=== PATIENT | female | born 1950 | race Asian ===

== ENCOUNTER 2017-07-04 19:30 | Inpatient (IN) | payer OTHER ==
[~2017-07-04] VITALS: Ht 160 cm; Wt 99.8 kg
--- NOTE | ~2017-07-04 | EKG ---
[address] [address] ELECTROCARDIOGRAM REPORT Name: LACIE ROBLES Room #: 411-P ADM IN M.R.#: [id number] Admission: 07/04/17 Attend Phys: Aniceto Hurtado MD Discharge: Date of : 52 Report #: [id number] THIS REPORT FOR: //name// [facility] ED Test Date: 2017-07-04 Test Time: 20:09:18 Pat Name: LAICE ROBLES Department: Room: 411 Gender: F [employer] Marker: [place] : 1950 Requested By: Colton Marina Order Number: [id number] MD: Arron Escoto Measurements Intervals [place] Rate: 85 P: 42 VA: 157 QRS: -2 QRSD: 93 T: 68 QT: 367 QTc: 437 Interpretive Statements Sinus rhythm Nonspecific ST segment abnormality No previous ECG available for comparison Electronically Signed On 07-05-2017 8:57:32 [employer] by Arron Escoto [email or web address] <ELECTRONICALLY SIGNED> By: Arron Escoto MD, [facility] 07/05/17 0857 08 08 Arron Escoto MD, FACC /EPI
[2017-07-04 20:35] LABS: ABSOLUTE NEUTROPHILS 7.1 thou/uL (1.4-8.2); BASOPHILS 0.4 % (0.0-2.0); EOSINOPHILS 1.9 % (0.0-3.0); HEMATOCRIT 35.4 % (37.0-47.0); HEMOGLOBIN 11.2 gm/dL (12.0-15.0); LYMPHOCYTES 17.8 % (24.0-44.0); MCH 29.8 pg (26.0-34.0); MCHC 31.7 g/dL (28.0-37.0); MCV 94.1 fL (80.0-100.0); MONOCYTES 3.5 % (1.0-8.0); PLATELET COUNT 228 thou/uL (150-400); POLYS 76.4 % (36.0-66.0); RBC 3.76 mil/uL (4.20-5.00); RDW 15.3 % (10.5-14.5); WBC 10.3 thou/uL (4.0-11.0)
[2017-07-04 20:42] LABS: ANION GAP 11 mmol/L (7-16); BUN 24 mg/dL (7-18); CALCIUM 9.6 mg/dL (8.5-10.1); CHLORIDE 103 mmol/L (98-107); CO2 19 mmol/L (21-32); CREATININE 1.6 mg/dL (0.6-1.0); GLUCOSE 191 mg/dL (74-106); POTASSIUM 4.9 mmol/L (3.5-5.1); SODIUM 133 mmol/L (136-145)
[2017-07-04 20:52] LABS: ALBUMIN 3.1 g/dL (3.4-5.0); SGOT 23 U/L (15-37); SGPT 16 U/L (30-65); TOTAL BILIRUBIN 0.5 mg/dL (<0.1-1.0); TOTAL PROTEIN 7.5 g/dL (6.4-8.2); TROPONIN-I < 0.04 ng/mL (<0.06)
[2017-07-04 21:51] LABS: URINE BILIRUBIN NEGATIVE (Negative); URINE BLOOD NEGATIVE (Negative); URINE CLARITY CLEAR; URINE COLOR YELLOW; URINE GLUCOSE-RANDOM* TRACE (Negative); URINE KETONES NEGATIVE (Negative); URINE NITRITE-REFLEX NEGATIVE (Negative); URINE PROTEIN (DIPSTICK) NEGATIVE (Negative); URINE UROBILINOGEN 0.2 E.U./dl (0.2-1.0)
[2017-07-04 21:52] LABS: URINE LEUKOCYTES-REFLEX 1+ (Negative)
[2017-07-04 22:01] LABS: BACTERIA-REFLEX 1-9 Few /HPF (None Seen); CASTS None Seen /LPF (None Seen); CRYSTALS None Seen /LPF (None Seen); SQUAMOUS 0-3 Few /LPF (0-3); URINE RBC None Seen /HPF (0-2); URINE WBC-REFLEX 6-15 Few /HPF (0-5)
[2017-07-04] MEDS ORDERED: IMURAN 50MG TAB50 M1 PO (22:36)
[2017-07-04] MEDS ORDERED: LOPRESSOR50 PO (22:37)
[2017-07-04] MEDS ORDERED: ACTOS 30 MG TAB30 M2 PO (22:38)
[2017-07-04] MEDS ORDERED: NEXIUM40 MG PO (22:39)
[2017-07-04] MEDS ORDERED: SANDIMMUNE25 MG PO (22:39)
[2017-07-04] MEDS ORDERED: GLIPIZIDE 10 MG10 MG PO (22:40)
[2017-07-04] MEDS ORDERED: BENTYL 20 MG TA20 M1 PO (22:40)
[2017-07-04] MEDS ORDERED: PREDNISONE 5 MG5 M1 PO (22:41)
[2017-07-04] MEDS ORDERED: LEVEMIR SUBQ (23:57)
[2017-07-05] VITALS: BP 125/60
[2017-07-05 00:19] VITALS: BP 138/61
[2017-07-05 05:00] VITALS: BP 136/68; BP 137/69; BP 143/64
[2017-07-05 05:50] LABS: HEMATOCRIT 31.7 % (37.0-47.0); HEMOGLOBIN 10.3 gm/dL (12.0-15.0); MCH 29.7 pg (26.0-34.0); MCHC 32.4 g/dL (28.0-37.0); MCV 91.7 fL (80.0-100.0); RBC 3.46 mil/uL (4.20-5.00); RDW 14.9 % (10.5-14.5); WBC 9.8 thou/uL (4.0-11.0)
[2017-07-05 05:59] LABS: CALCIUM 9.7 mg/dL (8.5-10.1); CREATININE 1.5 mg/dL (0.6-1.0); POTASSIUM 3.8 mmol/L (3.5-5.1)
[2017-07-05] MEDS ORDERED: DIOVAN 80 MG TA80 M1 PO (12:10)
[2017-07-05] MEDS ORDERED: AVAPRO300 MG PO (12:12)
[2017-07-05 16:52] VITALS: BP 137/72
[2017-07-05 20:00] VITALS: BP 138/67
[2017-07-06 04:00] VITALS: BP 145/65
[2017-07-06 07:40] VITALS: BP 144/59
[2017-07-06] MEDS ORDERED: LOPRESSOR50 PO (09:33)
[2017-07-06 11:30] VITALS: BP 145/65
== END 2017-07-06 14:00 | disposition home or self-care (01) | DRG 689 ==
LOC: ER 19:30 → 4N 22:37 → EROBS 22:37 → 4N 07-05 00:17 → ENTRNSPT 07-06 13:54 → EDTRNSPTSTS 07-06 13:56 → 4N 07-06 14:00
PROVIDERS: Nurse Practitioner Family; Physician Assistant
DX: N39.0 Urinary tract infection, site not specified (principal); N17.1 Acute kidney failure with acute cortical necrosis; Z94.0 Kidney transplant status; E11.9 Type 2 diabetes mellitus without complications; N18.9 Chronic kidney disease, unspecified; I12.9 Hypertensive chronic kidney disease with stage 1 through stage 4 chronic kidney disease, or unspecified chronic kidney disease; Z79.899 Other long term (current) drug therapy
CPT/HCPCS: 10790